=== PATIENT | male | born 1980 | race Hispanic/Latino ===

== ENCOUNTER 2018-04-18 03:15 | Emergency (ER) | payer SELFPAY ==
[2018-04-18] MEDS ORDERED: Morphine 4 MG/ML Carpuject ONE (03:46)
[2018-04-18 03:52] LABS: Bilirubin Negative (Negative); Blood, Urine Negative (Negative); Clarity Clear (Clear); Glucose, Urine (Dipstick) Negative (Negative); Leukocyte Negative (Negative); Nitrite Negative (Negative); Protein, Urine (Dipstick) Negative (Neg-Trace); Specific Gravity, Urine 1.025 (1.005-1.030); Urobilinogen 0.2 mg/dL (0.2-1.0); pH, Urine 5.5 (5.0-9.0)
[2018-04-18 03:54] LABS: #Basophils 0.1 thou/uL (0.0-0.2); #Eosinphils 0.1 thou/uL (0.0-0.7); #Lymphocytes 2.8 thou/uL (1.20-3.40); #Monocytes 0.6 thou/uL (0.11-0.59); #Neutrophils 2.6 thou/uL (1.40-6.50); %Basophils 1.6 % (0.0-1.0); %Eosinophils 1.8 % (0.0-10.0); %Lymphocytes 44.2 % (21.0-51.0); %Monocytes 10.2 % (0.0-10.0); %Neutrophils 42.2 % (42.0-75.0); Hemoglobin 16.6 g/dL (14.0-18.0); Mean Corpuscular HGB CONC 32.9 g/dL (32.0-36.0); Mean Corpuscular Hemoglobin 30.3 pg (27.0-31.0); Mean Corpuscular Volume 92.1 fL (78.0-98.0); Mean Platelet Volume 6.6 fL (7.4-10.4); Platelet Count 257 thou/uL (130-400); RBC Distribution Width 11.7 % (11.5-14.5); Red Blood Cell (RBC) Count 5.49 mill/uL (4.70-6.10); White Blood Cell (WBC) Count 6.3 thou/uL (4.8-10.8)
[2018-04-18 04:07] LABS: ALT (SGPT) 30 U/L (8-55); AST (SGOT) 23 U/L (5-34); Albumin 4.3 g/dL (3.5-5.0); Alkaline Phosphatase 50 U/L (40-150); Anion Gap 12 mmol/L (10-20); BUN (Urea Nitrogen) 14 mg/dL (8.9-20.6); Bilirubin, Total 0.7 mg/dL (0.2-1.2); Calc. Creatinine Clearance 0 mL/min (70-130); Calcium 9.7 mg/dL (7.8-10.44); Carbon Dioxide 29 mmol/L (22-29); Chloride 105 mmol/L (98-107); Estimated GFR-MDRD 77; Globulin 3.3 g/dL (2.4-3.5); Glucose 98 mg/dL (70-105); Lipase 55 U/L (8-78); Potassium 3.6 mmol/L (3.5-5.1); Protein, Total 7.6 g/dL (6.0-8.3); Sodium 142 mmol/L (136-145)
--- NOTE | 2018-04-18 07:31 | CT ---
PRELIMINARY REPORT/[facility]/EMERGENCY AFTER HOURS PROCEDURE: EXAM: CT Abdomen and Pelvis With Intravenous Contrast EXAM DATE/TIME: 04/18/2018 4:13 AM CLINICAL HISTORY: 37 years old, male; Pain; Abdominal pain; Flank; Right lower quadrant (rlq); Patient HX: PT presents to the er for flank pain; Rlq pain for the past 1-2 hours. Reports cramping squeezing pain in his rlq abdomen and r lower back. ; Additional info: Iv contrast only per er md TECHNIQUE: Axial computed tomography images of the abdomen and pelvis with intravenous contrast. All CT scans at this facility use at least one of these dose optimization techniques: automated exposure control; mA and/or kV adjustment per patient size (includes targeted exams where dose is matched to clinical indication); or iterative reconstruction. Coronal and sagittal reformatted images were created and reviewed. CONTRAST: 100 ml of ISOVUE 370 administered intravenously. COMPARISON: No relevant prior studies available. FINDINGS: Lower thorax: There is subpleural atelectasis of the dependent portions of the lungs. ABDOMEN: Liver: There are no focal liver lesions identified. Gallbladder and bile ducts: The gallbladder is normal. There is no evidence of biliary ductal dilatio n. Pancreas: The pancreas appears normal. Spleen: The spleen is normal. Adrenals: The adrenal glands are normal. Kidneys and ureters: The kidneys appear normal. Stomach and bowel: The stomach is normal. The colon is normal. There is fecal material within the dis roderick ileum compatible with delayed transit. Appendix: A normal appendix is identified. PELVIS: Bladder: The bladder is normal. Reproductive: The prostate gland and seminal vesicles are normal. ABDOMEN and PELVIS: Intraperitoneal space: Normal. No free air. No significant fluid collection. Bones/joints: No acute fracture or dislocation. Soft tissues: Unremarkable. Vasculature: Normal. No abdominal aortic aneurysm. Lymph nodes: Normal. No enlarged lymph nodes. IMPRESSION: Fecal material within the distal ileum compatible delayed transit. Otherwise unremarkable exam. Thank you for allowing us to participate in the care of your patient. Dictated and Authenticated by: Anthony Recinos MD 04/18/2018 5:13 AM Central Time ([place] & [place]) FINAL REPORT CT ABDOMEN AND PELVIS WITH CONTRAST: Date: 04/18/[address] of the abdomen and pelvis was done for evaluation of right lower quadrant pain. Axial slice s were acquired after giving IV contrast, then coronal and sagittal reconstructions were done. FINDINGS: The patient's heart seems a little generous in size. A minor amount of basilar atelectasis is seen, b ut the lungs are otherwise clear. The liver, spleen, pancreas, adrenal glands, kidneys, and abdominal aorta showed no acute findings. The gallbladder is mildly distended, but contains no signs of stones or wall thickening. No free air or free fluid seen. There is no distention of bowel to suggest obstruction. A normal dyana earing appendix was identified. There is some fecal material in the distal ileum, slightly unusual, w hich would imply delayed transit of feces. No bowel wall thickening or inflammatory changes are seen around bowel. CT of the pelvis showed no pelvic masses, fluid collections, or inflammatory changes. Lumbar spine wa s unremarkable. IMPRESSION: No evidence of appendicitis or other inflammatory changes. See comments above. Report in agreement with preliminary reading by [facility]. POS: HOME
[2018-04-18] MEDS ORDERED: Iopamidol 370 76% 100 ML VIAL ONE (09:00)
== END 2018-04-18 05:26 | disposition home or self-care (01) ==
LOC: BURERS 03:15
DX: K59.00 Constipation, unspecified (principal); I10 Essential (primary) hypertension
CPT/HCPCS: 74177; 80053; 81003; 83605; 83690; 85025; 96361; 96374; A4216; J2270

== ENCOUNTER 2018-06-19 22:58 | Emergency (ER) | payer SELFPAY ==
[2018-06-19] MEDS ORDERED: Morphine 10 MG/ML VIAL ONE (23:38)
[2018-06-19] MEDS ORDERED: Piperacillin/Tazobactam 3.375 GM VIAL ONE (23:38)
[2018-06-20 00:02] LABS: Band 3 % (5-11); Lymphocytes 36 % (21-51); MDiff Complete? YES; Mean Corpuscular Hemoglobin 30.3 pg (27.0-31.0); Mean Corpuscular Volume 86.7 fL (78.0-98.0); Mean Platelet Volume 6.6 fL (7.4-10.4); Monocytes 6 % (0-10); Neutrophil 55 % (42-75); PLT Morphology Comment Appears Adequate; Platelet Count 242 thou/uL (130-400); RBC Distribution Width 11.3 % (11.5-14.5); RBC Morphology Normal; Red Blood Cell (RBC) Count 5.29 mill/uL (4.70-6.10); White Blood Cell (WBC) Count 8.3 thou/uL (4.8-10.8)
[2018-06-20 00:05] LABS: ALT (SGPT) 29 U/L (8-55); AST (SGOT) 28 U/L (5-34); Albumin 4.3 g/dL (3.5-5.0); Alkaline Phosphatase 46 U/L (40-150); Anion Gap 15 mmol/L (10-20); BUN (Urea Nitrogen) 15 mg/dL (8.9-20.6); Bilirubin, Total 0.6 mg/dL (0.2-1.2); Calc. Creatinine Clearance 0 mL/min (70-130); Calcium 9.9 mg/dL (7.8-10.44); Carbon Dioxide 26 mmol/L (22-29); Chloride 103 mmol/L (98-107); Estimated GFR-MDRD 73; Globulin 3.5 g/dL (2.4-3.5); Glucose 122 mg/dL (70-105); Lipase 66 U/L (8-78); Potassium 3.8 mmol/L (3.5-5.1); Protein, Total 7.8 g/dL (6.0-8.3); Sodium 140 mmol/L (136-145)
== END 2018-06-20 00:05 | disposition short-term general hospital (02) ==
LOC: BURERS 22:58
DX: R10.11 Right upper quadrant pain (principal); I10 Essential (primary) hypertension
CPT/HCPCS: 80053; 83690; 85025; 96365; 96375; J2270; J2543

== ENCOUNTER 2020-12-15 01:08 | Emergency (ER) | payer SELFPAY ==
[2020-12-15] MEDS ORDERED: Bupivacaine 0.5% 10 ML VIAL ONE (01:29)
[2020-12-15] MEDS ORDERED: Bupivacaine HCl 0.5%/Epinephrine 1:200,000/PF 30 ml Vial ONE (01:29)
== END 2020-12-15 01:35 | disposition home or self-care (01) ==
LOC: BURERS 01:08
DX: K02.9 Dental caries, unspecified (principal); I10 Essential (primary) hypertension
CPT/HCPCS: 64400; J3490

== ENCOUNTER 2021-11-25 19:54 | Emergency (ER) | payer SELFPAY ==
[2021-11-25] MEDS ORDERED: Ketorolac Tromethamine 60 MG/2 ML VIAL ONE (20:59)
== END 2021-11-25 22:07 | disposition home or self-care (01) ==
LOC: BURERS 19:54
DX: S29.012A Strain of muscle and tendon of back wall of thorax, initial encounter (principal); R09.1 Pleurisy; Z79.899 Other long term (current) drug therapy; I10 Essential (primary) hypertension
CPT/HCPCS: 36415; 71046; 85379; 93005; 96372; J1885

== ENCOUNTER 2025-07-06 23:10 | Emergency (ER) | payer SELFPAY ==
[2025-07-07 00:14] LABS: INR-International Normal Ratio 1.0; Prothrombin Time 13.0 sec (12.0-14.7)
[2025-07-07 00:15] LABS: #Basophils 0.1 thou/uL (0.0-0.2); #Eosinophils 0.1 thou/uL (0.0-0.7); #Lymphocytes 1.8 thou/uL (1.20-3.40); #Monocytes 0.8 thou/uL (0.11-0.59); #Neutrophils 3.9 thou/uL (1.40-6.50); %Basophils 1.9 % (0.0-1.0); %Eosinophils 1.5 % (0.0-10.0); %Lymphocytes 26.4 % (21.0-51.0); %Monocytes 12.3 % (0.0-10.0); %Neutrophils 57.9 % (42.0-75.0); Hematocrit 43.4 % (42.0-52.0); Hemoglobin 13.9 g/dL (14.0-18.0); Mean Corpuscular Hemoglobin 29.9 pg (27.0-31.0); Mean Corpuscular Volume 93.5 fl (78.0-98.0); Platelet Count 228 10x3/uL (130-400); Red Blood Cell (RBC) Count 4.64 mill/uL (4.70-6.10); White Blood Cell (WBC) Count 6.7 10x3/uL (4.8-10.8)
[2025-07-07 00:18] LABS: ALT (SGPT) 23 U/L (Less than 45); AST (SGOT) 35 U/L (11-34); Albumin 4.1 g/dL (3.1-4.5); Alkaline Phosphatase 58 U/L (40-110); Anion Gap 15 mmol/L (10-20); BUN (Urea Nitrogen) 25 mg/dL (8.9-20.6); Bilirubin, Total 0.4 mg/dL (0.3-1.2); Calc. Creatinine Clearance 0 mL/min (70-130); Calcium 9.2 mg/dL (7.8-10.44); Carbon Dioxide 25 mmol/L (22-29); Chloride 104 mmol/L (98-107); Globulin 2.9 g/dL (2.4-3.5); Glucose 90 mg/dL (70-105); Potassium 4.3 mmol/L (3.5-5.1); Sodium 140 mmol/L (136-145)
== END 2025-07-07 00:45 | disposition home or self-care (01) ==
LOC: BURERS 23:10
DX: G43.909 Migraine, unspecified, not intractable, without status migrainosus (principal); I10 Essential (primary) hypertension; R29.700 NIHSS score 0; Z79.899 Other long term (current) drug therapy
CPT/HCPCS: 70450; 80053; 85025; 85610; 93005